=== PATIENT | female | born 1990 | race African-American/Black ===

== ENCOUNTER 2018-02-08 12:52 | Emergency (ER) | payer SELFPAY ==
[~2018-02-08] VITALS: Ht 165.1 cm; Wt 100.0 kg
[2018-02-08 14:40] LABS: CLARITY URINE CLOUDY (CLEAR); COLOR URINE DARK YELLOW (YELLOW); KETONES URINE TRACE (NEGATIVE); LEUKOCYTE ESTERASE URINE 2+ (NEGATIVE); NITRITE URINE NEGATIVE (NEGATIVE); OCCULT BLOOD URINE NEGATIVE (NEGATIVE); PH URINE 5.5 (4.5-8.0); PROTEIN URINE TRACE (NEGATIVE); SPECIFIC GRAVITY URINE 1.029 (1.005-1.030); UROBILINOGEN URINE 0.2 E.U./dL (0.2-1.0)
[2018-02-08] MEDS ORDERED: SODIUM CHLORIDE 0.9% 1,000 ML IV ONE (14:51)
[2018-02-08] MEDS ORDERED: ONDANSETRON HCL 4MG/2ML INJ IV STA (14:51)
[2018-02-08] MEDS ORDERED: KETOROLAC 30MG/ML VIAL IV STA (14:51)
[2018-02-08 15:26] LABS: BASOPHILS % 0.8 % (0.0-2.0); EOSINOPHILS % 1.1 % (0.0-5.0); HEMATOCRIT. 36.1 % (36.0-48.0); HEMOGLOBIN. 11.5 g/dL (12.0-16.0); LYMPHOCYTES % 19.5 % (20.0-50.0); MEAN CORPUSCULAR HEMOGLOBIN 23.2 pg (28.0-32.0); MEAN CORPUSCULAR VOLUME 72.8 fL (81.0-99.0); MEAN PLATELET VOLUME 7.2 fl (7.4-10.4); MONOCYTES % 5.2 % (2.0-8.0); NEUTROPHILS % 73.4 % (40.0-76.0); PLATELET 407 x1000/uL (130-400); RED BLOOD CELL COUNT 4.96 mill/uL (4.2-5.4); RED CELL DISTRIBUTION WIDTH 16.8 % (11.6-14.6)
[2018-02-08 15:30] LABS: CHLORIDE 105 mEq/L (98-107)
[2018-02-08 17:23] VITALS: BP 147/84
== END 2018-02-08 17:25 | disposition home or self-care (01) ==
LOC: ER 14:19
DX: N30.90 Cystitis, unspecified without hematuria (principal)
CPT/HCPCS: 36415; 76705; 80053; 81003; 81025; 83690; 85025; 87077; 87086; 87186; 96361; 96374; 96375; 99285; J1885; J2405; J7030